=== PATIENT | female | born 1955 | race Caucasian/White ===

== ENCOUNTER → 2016-08-22 | Outpatient (CLI) | payer OTHER | LOC: CT 08:50 | DX: R10.813 Right lower quadrant abdominal tenderness (principal); Z79.899 Other long term (current) drug therapy; N20.0 Calculus of kidney | CPT/HCPCS: J7050; Q9962 ==

== ENCOUNTER 2016-11-18 15:10 | Emergency (ER) | payer OTHER ==
[2016-11-18 19:07] LABS: HEMOGLOBIN 13.9 gm/dl (12.3-15.3); RED BLOOD COUNT 4.57 M/UL (4.00-5.10); WHITE BLOOD COUNT 5.5 K/UL (4.5-11.0)
[2016-11-18 19:25] LABS: BUN/CREATININE RATIO 30 (0-10)
== END 2016-11-18 21:55 | disposition home or self-care (01) ==
LOC: ER1 15:10
PROVIDERS: Preventive Medicine Occupational Medicine
DX: N39.0 Urinary tract infection, site not specified (principal); I10 Essential (primary) hypertension; E66.9 Obesity, unspecified
CPT/HCPCS: 36415; 80048; 81001; 85025; 86140; 96374; 96375; 99284; J0696; J1885; J2405; J7030; J7050

== ENCOUNTER 2021-02-01 15:44 | Emergency (ER) | payer OTHER ==
[2021-02-01 16:50] LABS: HEMOGLOBIN 13.3 gm/dl (12.3-15.3); RED BLOOD COUNT 4.3 M/UL (4.00-5.10); WHITE BLOOD COUNT 5.4 K/UL (4.5-11.0)
[2021-02-01 17:10] LABS: BUN/CREATININE RATIO 20 (0-10)
[2021-02-01] MEDS ORDERED: HYDROCODON-ACE1 EAC4 PO (19:01)
== END 2021-02-01 19:40 | disposition home or self-care (01) ==
LOC: ER1 15:44
PROVIDERS: Emergency Medicine
DX: S09.90XA Unspecified injury of head, initial encounter (principal); S13.4XXA Sprain of ligaments of cervical spine, initial encounter; S33.5XXA Sprain of ligaments of lumbar spine, initial encounter; S23.3XXA Sprain of ligaments of thoracic spine, initial encounter; S30.1XXA Contusion of abdominal wall, initial encounter; S20.219A Contusion of unspecified front wall of thorax, initial encounter; K21.9 Gastro-esophageal reflux disease without esophagitis; E87.6 Hypokalemia; V49.40XA Driver injured in collision with unspecified motor vehicles in traffic accident, initial encounter; Y92.410 Unspecified street and highway as the place of occurrence of the external cause
CPT/HCPCS: 70450; 71260; 72125; 73030; 80053; 82550; 82553; 83874; 84484; 85025; 93005; 96374; 96375; 99285; J2270; J2405; J7030; Q9967

== ENCOUNTER 2021-04-13 00:32 | Emergency (ER) | payer OTHER ==
[~2021-04-13 00:32] MED LIST: HYDROCODON-ACE1 EAC4 PO
[2021-04-13 01:56] LABS: HEMOGLOBIN 13.7 gm/dl (12.3-15.3); RED BLOOD COUNT 4.38 M/UL (4.00-5.10); WHITE BLOOD COUNT 8.5 K/UL (4.5-11.0)
[2021-04-13 01:57] LABS: BUN/CREATININE RATIO 27 (0-10)
[2021-04-13] MEDS ORDERED: PERCOCET 5/325 T1 EA PO (04:30)
== END 2021-04-13 04:20 | disposition home or self-care (01) ==
LOC: ER1 00:32
PROVIDERS: Family Medicine
DX: S22.42XA Multiple fractures of ribs, left side, initial encounter for closed fracture (principal); J90 Pleural effusion, not elsewhere classified; X58.XXXA Exposure to other specified factors, initial encounter
CPT/HCPCS: 71260; 80053; 82550; 82553; 84484; 85025; 96374; 96375; 99284; J2270; J2405; Q9967

== ENCOUNTER 2021-04-20 10:19 | Emergency (ER) | payer OTHER ==
[~2021-04-20 10:19] MED LIST changes: +PERCOCET 5/325 T1 EA PO
[2021-04-20 12:12] LABS: RED BLOOD COUNT 4.48 M/UL (4.00-5.10); WHITE BLOOD COUNT 6.8 K/UL (4.5-11.0)
[2021-04-20 12:45] LABS: BUN/CREATININE RATIO 20 (0-10)
[2021-04-20] MEDS ORDERED: METRONIDAZOLE500 MG PO (15:45)
[2021-04-20] MEDS ORDERED: CIPRO500 MG PO (15:45)
[2021-04-20] MEDS ORDERED: PYRIDIUM200 MG PO (15:45)
== END 2021-04-20 15:55 | disposition home or self-care (01) ==
LOC: ER1 10:19
PROVIDERS: Physician Assistant Medical
DX: N39.0 Urinary tract infection, site not specified (principal); K21.9 Gastro-esophageal reflux disease without esophagitis; Z90.710 Acquired absence of both cervix and uterus
CPT/HCPCS: 80053; 81001; 83605; 83690; 85025; 87086; 99284; Q9967

== ENCOUNTER → 2021-05-02 | Outpatient (CLI) | payer OTHER ==
[~2021-05-02] MED LIST changes: +CIPRO500 MG PO; +METRONIDAZOLE500 MG PO; +PYRIDIUM200 MG PO
== END ==
LOC: KOH-I 15:04
DX: S22.49XA Multiple fractures of ribs, unspecified side, initial encounter for closed fracture (principal); R06.02 Shortness of breath
CPT/HCPCS: 71046; 71100